=== PATIENT | female | born 1985 | race Caucasian/White ===

== ENCOUNTER 2019-02-22 05:37 | Inpatient (IN) | payer BC ==
[~2019-02-22] VITALS: Ht 162.6 cm; Wt 72.3 kg
[2019-02-22] VITALS (18 sets, daily range): BP systolic 115–133; BP diastolic 56–714; PULSE 61–96; TEMP 97.9–98.2
[~2019-02-22 05:37] MED LIST: IBU-6600 MG PO; IBU600 MG PO; PERCOCET 325 MG1 TA2 PO; PRENATAL1 TA1 PO; TUMS500 MG
[2019-02-22 06:41] LABS: BASO % 0.3 % (0.0-2.0); EOS # 0.1 (0.0-0.7); EOS % 0.5 % (0-4.0); GRAN # 8.2 (1.4-6.5); GRAN % 76.3 % (42.2-75.2); HEMOGLOBIN 11.2 g/dl (12.5-16.0); LYMPH # 1.8 (1.2-3.4); LYMPH % 16.8 % (20.0-51.0); MEAN CELL VOLUME 88 fl (80.0-100.0); MEAN CORPUSCULAR HEMOGLOBIN 30 pg (27.0-31.0); MEAN CORPUSCULAR HGB CONC 34 g/dl (33.0-37.0); MEAN PLATELET VOLUME 9.8 fl (7.4-10.4); MONO # 0.6 (0.1-0.6); MONO % 5.5 % (1.7-9.3); PLATELET COUNT 215 K/mm3 (130-400); RED BLOOD COUNT 3.71 M/mm3 (4.10-5.30); REDCELL DISTRIBUTION WIDTH-CV 13.5 % (11.5-14.5)
[2019-02-22 06:43] LABS: HEMATOCRIT 32.8 % (37.0-47.0)
--- NOTE | 2019-02-22 10:45 | NUR ---
Initial visit; Parents thanked Change Control Manager for offering Congratulations and God's Blessings for the of their daughter. Change Control Manager thanked family for choosing [facility].
[2019-02-23 03:15] VITALS: BP 136/85; PULSE 75
[2019-02-23 07:05] LABS: HEMOGLOBIN 10.7 g/dl (12.5-16.0)
[2019-02-23 07:08] LABS: HEMATOCRIT 32.2 % (37.0-47.0)
[2019-02-23 08:20] VITALS: BP 126/81; PULSE 82; TEMP 98.5
--- NOTE | 2019-02-23 09:16 | NUR ---
Initial visit; Parents thanked Networks Computer Consultant for offering congratulations and God's blessings for the of their daughter. Networks Computer Consultant thanked family for choosing [facility].
[2019-02-23 16:00] VITALS: BP 116/62; PULSE 64; TEMP 97.9
[2019-02-23] MEDS ORDERED: MOTRIN 600600 MG/TAB PO (19:01)
[2019-02-23] MEDS ORDERED: PERCOCET 325 MG1 TA2 PO (19:02)
[2019-02-23 20:15] VITALS: BP 124/80; PULSE 79; TEMP 97.7
[2019-02-24 07:30] VITALS: BP 133/88; PULSE 84; TEMP 97.8
--- NOTE | 2019-02-24 07:30 | NUR ---
0745 Request pain medication. Percocet 5/325 mg one given per request and as ordered.
--- NOTE | 2019-02-24 09:30 | NUR ---
Ibuprofen 600 mg one given as ordered.
--- NOTE | 2019-02-24 10:30 | NUR ---
Discharge instructions given, verbalizes understanding.
== END 2019-02-24 10:45 | disposition home or self-care (01) | DRG 788 ==
LOC: OB 05:37 → LDR 14:05 → OB 02-24 10:45
PROVIDERS: ADMIT Obstetrics & Gynecology
PROC: 10D00Z1 Extraction of Products of Conception, Low, Open Approach (ICD-10-PCS; principal; 2019-02-22)
DX: O34.211 Maternal care for low transverse scar from previous cesarean delivery (principal); Z3A.39 39 weeks gestation of pregnancy; Z37.0 Single live birth; O69.81X0 Labor and delivery complicated by cord around neck, without compression, not applicable or unspecified
CPT/HCPCS: J0690; J1885; J2370; J2405; J2590; J7120

== ENCOUNTER 2023-11-20 13:22 | Emergency (ER) | payer BC ==
[~2023-11-20] VITALS: Ht 162.6 cm; Wt 59.1 kg
[~2023-11-20 13:22] MED LIST changes: +MOTRIN 600600 MG/TAB PO
[2023-11-20 14:14] LABS: COLLECTION METHOD CLEAN CATCH
[2023-11-20 14:19] LABS: BASO # 0.1 K/mm3 (0.0-0.2); BASO % 0.7 % (0.0-2.0); EOS % 0.1 % (0.0-4.0); GRAN # 6.8 K/mm3 (1.4-6.5); GRAN % 76.4 % (42.2-75.2); HEMATOCRIT 37.4 % (37.0-47.0); HEMOGLOBIN 12.1 g/dl (12.5-16.0); LYMPH # 1.6 K/mm3 (1.2-3.4); LYMPH % 18.1 % (20.0-51.0); MEAN CELL VOLUME 81 fl (80.0-100.0); MEAN CORPUSCULAR HEMOGLOBIN 26 pg (27-31); MEAN CORPUSCULAR HGB CONC 32 g/dl (33.0-37.0); MEAN PLATELET VOLUME 9.5 fl (7.4-10.4); MONO # 0.4 K/mm3 (0.1-0.6); MONO % 4.5 % (1.7-9.3); PLATELET COUNT 345 K/mm3 (130-400); RED BLOOD COUNT 4.64 M/mm3 (4.10-5.30); REDCELL DISTRIBUTION WIDTH-CV 13.8 % (11.5-14.5)
[2023-11-20 14:28] LABS: URINE APPEARANCE CLEAR (CLEAR/HAZY); URINE BLOOD NEGATIVE (NEGATIVE); URINE COLOR YELLOW (YELLOW); URINE GLUCOSE NEGATIVE (NEGATIVE); URINE KETONE 1+ (NEGATIVE); URINE NITRATE NEGATIVE (NEGATIVE); URINE PROTEIN(semi-quant) NEGATIVE (NEGATIVE); URINE UROBILINOGEN 0.2 E.U/dL (0.2-1.0)
[2023-11-20 14:31] LABS: TRICYCLIC ANTIDEPRESS URINE NEGATIVE (NEGATIVE)
[2023-11-20 14:41] LABS: ALANINE AMINOTRANSFERASE 11 U/L (0-55); ALBUMIN 4.3 g/dL (3.5-5.0); ALKALINE PHOSPHATASE 66 U/L (40-150); ANION GAP 10 mmol/L (7-16); AST,SGOT 16 U/L (5-34); BILIRUBIN,TOTAL 0.5 mg/dL (0.2-1.2); BLOOD UREA NITROGEN 7 mg/dL (7-19); CALCIUM 10.1 mg/dL (8.4-10.2); CHLORIDE 104 mEq/L (98-107); CREATININE, serum 0.83 mg/dL (0.57-1.11); GLUCOSE 112 mg/dL (70-99); POTASSIUM 3.3 mEq/L (3.5-4.5); SODIUM 136 mEq/L (136-145); TOTAL PROTEIN 8.2 g/dl (6.2-8.1)
[2023-11-20 14:42] LABS: ALCOHOL(ethanol),MEDICAL < 10 mg/dL (0-10); SALICYLATE < 5.0 mg/dL (15.0-30.0)
[2023-11-20] MEDS ORDERED: Cefuroxime 250 MG TAB PO ONE (15:00)
[2023-11-20] MEDS ORDERED: CEFTIN 250250 MG/TAB PO (15:23)
[2023-11-20] MEDS ORDERED: Melatonin 3 MG TAB PO ONE (16:30)
[2023-11-20 17:59] VITALS: BP 132/93; PULSE 82; TEMP 98.4
== END 2023-11-20 20:35 | disposition home or self-care (01) ==
LOC: COL.ER 13:22
PROVIDERS: Emergency Medicine
DX: F22 Delusional disorders (principal); N39.0 Urinary tract infection, site not specified; E87.6 Hypokalemia

== ENCOUNTER 2023-11-21 08:27 | Emergency (ER) | payer BC ==
[~2023-11-21 08:27] MED LIST changes: +CEFTIN 250250 MG/TAB PO
[2023-11-21] MEDS ORDERED: OLANZapine 5 MG Orally-Disinteg TAB PO ONE (08:45)
[2023-11-21] MEDS ORDERED: LORazepam 0.5 MG TAB PO ONE ×2 (08:45→15:15)
[2023-11-21] MEDS ORDERED: OLANZapine 10 MG Orally-Disinteg TAB PO ONE (15:15)
[2023-11-21] MEDS ORDERED: OLANZapine 5 MG Orally-Disinteg TAB PO PRN (21:15)
[2023-11-22 10:46] VITALS: BP 144/93; PULSE 99; TEMP 98.2
== END 2023-11-22 11:30 | disposition short-term general hospital (02) ==
LOC: COL.ER 08:27
DX: F22 Delusional disorders (principal); F23 Brief psychotic disorder; R45.1 Restlessness and agitation